=== PATIENT | male | born 1990 | race Two or more races ===

== ENCOUNTER → 2019-01-22 | Outpatient (CLI) | payer OTHER ==
[~2019-01-22] MED LIST: BARIUM SULFATE 98% 340 GM PWDR ONE; EZ PAQUE SUSP 12OZ BTL ONE; EZ-GAS II GRANULES (RADIOLOGY USE) PO ONE
== END | disposition home or self-care (01) ==
LOC: XY 07:35
DX: R07.0 Pain in throat (principal); R13.10 Dysphagia, unspecified
CPT/HCPCS: 74220

== ENCOUNTER → 2019-03-20 | Outpatient (CLI) | payer OTHER ==
[~2019-03-20] MED LIST changes: -BARIUM SULFATE 98% 340 GM PWDR ONE; -EZ PAQUE SUSP 12OZ BTL ONE; -EZ-GAS II GRANULES (RADIOLOGY USE) PO ONE; +IOHEXOL 300 MG/ML 100ML BOTTLE IJ ONE
[2019-03-20 10:08] LABS: BUN/Creatinine Ratio 20.2; Calcium 8.7 mg/dL (8.5-10.1)
== END | disposition home or self-care (01) ==
LOC: CT 09:19
DX: K86.9 Disease of pancreas, unspecified (principal); I10 Essential (primary) hypertension; K21.9 Gastro-esophageal reflux disease without esophagitis
CPT/HCPCS: 36415; 74177; 80048; Q9967